=== PATIENT | female | born 1960 | race Caucasian/White ===

== ENCOUNTER → 2017-01-25 | Outpatient (CLI) | payer BC ==
--- NOTE | 2017-01-26 10:19 | RADRPT ---
PROCEDURE: XR Finger. CLINICAL INDICATION: Trauma. Right second finger pain. TECHNIQUE: Three views of the right second finger are available for review. COMPARISON: None available FINDINGS: There is no fracture or dislocation. The soft tissues are normal. There is joint space narrowing and there are osteophytes arising from the margins of the second dist al interphalangeal joint. The second proximal interphalangeal joint and metacarpal phalangeal joint are normal. There are no erosions. There is no soft tissue calcification. There is no lytic or blastic lesion. There is no radiopaque foreign body. IMPRESSION: 1. Joint space narrowing and osteophytes involving the second distal interphalangeal joint consiste nt with osteoarthritis. 2. Otherwise normal images of the right second finger. RPTAT: QQ .Sanjeev Raymond MD, Date Time Electronically viewed and signed by .Sanjeev Raymond MD, on 01/26/2017 10:18 .R/
--- NOTE | 2017-01-26 10:20 | RADRPT ---
PROCEDURE: XR Cervical Spine. CLINICAL INDICATION: Neck pain. TECHNIQUE: Three views of the cervical spine were performed. Frontal, lateral, and AP open-mouth o dontoid. The images were reviewed on a PACS workstation. COMPARISON: None. FINDINGS: There is normal stature and alignment of the vertebrae. There is no fracture. There is no lytic or blastic lesion. There are mild degenerative changes at C6-7 with disk space narrowing and osteophytes. The prevertebral soft tissues are normal. There are extraneous metal foreign bodies posteriorly. IMPRESSION: 1. Mild degenerative changes at C6-7. 2. Otherwise unremarkable images of the cervical spine. RPTAT: QQ .Sanjeev Raymond MD, MD Date Time Electronically viewed and signed by .Sanjeev Raymond MD, on 01/26/2017 10:19 .R/
== END | disposition home or self-care (01) ==
LOC: RAD 13:26
PROVIDERS: ATTEND Internal Medicine
DX: M47.892 Other spondylosis, cervical region (principal); S69.91XA Unspecified injury of right wrist, hand and finger(s), initial encounter; X58.XXXA Exposure to other specified factors, initial encounter; M19.041 Primary osteoarthritis, right hand
CPT/HCPCS: 72040; 73140

== ENCOUNTER → 2017-01-26 | Outpatient (CLI) | payer BC ==
[2017-01-26 05:55] LABS: ADD SCAN DIFF NO
[2017-01-26 06:03] LABS: BASOPHILS % 0.8 % (0.0-2.0); EOSINOPHILS # 0.3 10^3/ul (0.0-0.5); EOSINOPHILS % 6.5 % (0.0-7.0); HEMATOCRIT 38.7 % (37.0-47.0); HEMOGLOBIN 12.9 g/dl (12.0-16.0); LYMPHOCYTES # 2.6 10^3/ul (0.8-2.9); LYMPHOCYTES % 51.9 % (15.0-51.0); MEAN CORPUSCULAR HEMOGLOBIN 31.5 pg (29.0-33.0); MEAN CORPUSCULAR HGB CONC 33.3 g/dl (32.0-37.0); MEAN CORPUSCULAR VOLUME 94.4 fl (82.0-101.0); MEAN PLATELET VOLUME 9.1 fl (7.4-10.4); MONOCYTE # 0.5 10^3/ul (0.3-0.9); MONOCYTES % 9.9 % (0.0-11.0); NEUTROPHIL # 1.5 10^3/ul (1.6-7.5); NEUTROPHILS % 30.9 % (39.0-77.0); PLATELET COUNT 261 10^3/UL (140-415); RED CELL DISTRIBUTION WIDTH 12.2 % (11.5-14.5)
[2017-01-26 06:32] LABS: ALBUMIN 4.1 g/dl (3.3-4.9); ALBUMIN/GLOBULIN RATIO 1.24; CALCIUM 9.1 mg/dl (8.4-10.2); CHOL/HDL RATIO 4.1 RATIO; CREATININE 0.75 mg/dl (0.44-1.00); POTASSIUM 3.9 mmol/L (3.5-5.1); TOTAL PROTEIN 7.4 g/dl (6.1-8.1)
[2017-01-26 06:57] LABS: THYROID STIMULATING HORMONE 1.91 MIU/L (0.465-4.680)
== END | disposition home or self-care (01) ==
LOC: LAB 06:00
PROVIDERS: ATTEND Internal Medicine
DX: M79.602 Pain in left arm (principal)
CPT/HCPCS: 80053; 80061; 83036; 84436; 84443; 85025

== ENCOUNTER → 2018-03-05 | Outpatient (CLI) | END | disposition home or self-care (01) ==

== ENCOUNTER → 2019-02-14 | Outpatient (CLI) | payer BC | END | disposition home or self-care (01) | LOC: LAB 06:21 | PROVIDERS: ATTEND Internal Medicine | DX: E55.9 Vitamin D deficiency, unspecified (principal); E78.5 Hyperlipidemia, unspecified; E03.9 Hypothyroidism, unspecified; R73.03 Prediabetes | CPT/HCPCS: 80053; 80061; 82306; 83036; 83735; 84436; 84443; 85025; 86140 ==